=== PATIENT | male | born 1985 | race Caucasian/White ===

== ENCOUNTER 2021-11-06 17:23 | Emergency (ER) | payer OTHER ==
[2021-11-06 17:31] VITALS: TEMP 98.3; BMI 33.2
[2021-11-06 18:37] LABS: BASO % 0.6 % (0-2.0); EOS % 2.1 % (0-4.5); HEMATOCRIT 44.9 % (35.4-49); HEMOGLOBIN 15.9 GM/dL (11.7-16.9); LYMPH % 18.2 % (8-40); MCH 29.6 pg (25.7-33.7); MCHC 35.5 g/dl (32.0-35.9); MEAN CELL VOLUME 83.4 fl (80-96); MONO % 6.9 % (3.8-10.2); NEUT % 72.2 % (42.8-82.8); PLATELET COUNT 260 10^3/uL (134-434); RBC 5.39 M/mm3 (4.00-5.60); RDW 12.9 % (11.9-15.9); WHITE BLOOD COUNT 7.2 K/mm3 (4.0-10.0)
[2021-11-06 18:44] LABS: INR 1.09 (0.83-1.09); PROTHROMBIN TIME (PATIENT) 12.6 SEC (9.7-13.0)
[2021-11-06 18:46] LABS: ACTIVATED PTT 33.5 SECONDS (25.2-36.5)
[2021-11-06 19:01] LABS: ALBUMIN 4.5 g/dl (3.4-5.0); BLOOD UREA NITROGEN 5.9 mg/dL (7-18); CALCIUM 9.6 mg/dL (8.5-10.1); MAGNESIUM 2.2 mg/dL (1.8-2.4)
[2021-11-06 19:04] LABS: CREATININE 1.1 mg/dL (0.55-1.3)
[2021-11-06 19:06] LABS: BILIRUBIN,TOTAL 0.5 mg/dL (0.2-1); TOT PROT 7.4 g/dl (6.4-8.2)
[2021-11-06 23:35] VITALS: BP 154/100; PULSE 68
== END 2021-11-07 00:42 | disposition home or self-care (01) ==
LOC: JER 17:23 → SUPCPDRO 17:23 → JER 11-07 00:42
DX: R94.31 Abnormal electrocardiogram [ECG] [EKG] (principal); I10 Essential (primary) hypertension
CPT/HCPCS: 36415; 76705-TC; 80053; 83735; 84484; 85025; 85610; 85730; 93005; 93010; 99285-25